=== PATIENT | male | born 1965 | race Caucasian/White ===

== ENCOUNTER 2020-11-17 07:56 | Emergency (ER) | payer SELFPAY ==
[~2020-11-17] VITALS: Ht 175.3 cm; Wt 122.5 kg
[~2020-11-17 07:56] MED LIST: COLCHICINE0.6 MG PO; Indomethacin50 MG PO
[2020-11-17] MEDS ORDERED: ATOR40TA PO (08:18)
[2020-11-17] MEDS ORDERED: TAMS.4ER PO (08:19)
[2020-11-17] MEDS ORDERED: AMLO10 PO (08:19)
[2020-11-17] MEDS ORDERED: LOSA50 PO (08:19)
[2020-11-17] MEDS ORDERED: ASCO500 PO (08:20)
[2020-11-17] MEDS ORDERED: ASPI81CH PO (08:20)
[2020-11-17] MEDS ORDERED: LEVSOD100 PO (08:20)
[2020-11-17] MEDS ORDERED: FISH OIL 1,2001 EAC7 PO (08:21)
[2020-11-17] MEDS ORDERED: METO100ER PO (08:21)
[2020-11-17] MEDS ORDERED: ZINC15 PO (08:21)
[2020-11-17] MEDS ORDERED: TOCO1000 PO (08:21)
[2020-11-17] MEDS ORDERED: MERIBIN5 M1 PO (08:22)
[2020-11-17] MEDS ORDERED: VITAMIN D325 MC3 PO (08:22)
[2020-11-17] MEDS ORDERED: IBUP800 PO (08:23)
[2020-11-17] MEDS ORDERED: CYCL10 PO (08:23)
[2020-11-17] MEDS ORDERED: OMEP20ER PO (08:23)
[2020-11-17] MEDS ORDERED: [UNRECOGNIZED DRUG - OTHER] (08:25)
[2020-11-17] MEDS ORDERED: TRI MIX 150 MG IC (08:26)
[2020-11-17 08:44] LABS: Source, Urine Clean Catch
[2020-11-17 08:49] LABS: Appearance, Urine Clear (Clear); Bilirubin, Urine Neg (Neg); Blood, Urine Neg (Neg); Color, Urine Yellow (P-Yellow); Glucose Qualitative, Urine 2+ (Neg); Ketones, Urine Neg (Neg); Leukocyte Esterase, Urine Neg (Neg); Nitrite, Urine Neg (Neg); Protein, Urine Neg (Neg); Specific Gravity, Urine 1.005 (1.003-1.022); Urobilinogen, Urine NORM (Normal)
[2020-11-17 09:20] LABS: BASOPHILS ABSOLUTE AUTO 0.05 K/mm3 (0.00-0.23); BASOPHILS PERCENT AUTO 0 % (0-2); EOSINOPHILS ABSOLUTE AUTO 0.36 K/mm3 (0.00-0.68); EOSINOPHILS PERCENT AUTO 3 % (0-6); Hematocrit 47.2 % (37.0-53.0); Hemoglobin 15.9 g/dL (13.5-17.5); IMMATURE GRAN ABSOLUTE AUTO 0.09 K/mm3 (0.00-0.10); IMMATURE GRAN PERCENT AUTO 1 % (0-1); LYMPHOCYTES ABSOLUTE AUTO 1.36 K/mm3 (0.84-5.20); LYMPHOCYTES PERCENT AUTO 10 % (21-46); MONOCYTES ABSOLUTE AUTO 1.37 K/mm3 (0.16-1.47); MONOCYTES PERCENT AUTO 10 % (4-13); Mean Corpuscular HGB 30.1 pg (26.0-34.0); Mean Corpuscular HGB Conc 33.7 g/dL (31.5-36.5); Mean Corpuscular Volume 89 fL (80-100); Mean Platelet Volume 9.9 fL (9.1-12.4); NEUTROPHILS ABSOLUTE AUTO 10.97 K/mm3 (1.96-9.15); NEUTROPHILS PERCENT AUTO 77 % (41-73); Platelet Count 192 K/mm3 (150-400); RDW Coefficient Variation 13.4 % (11.7-14.2); RDW Standard Deviation 44.1 fL (35.1-46.3); Red Blood Cell Count 5.29 M/mm3 (4.30-5.90)
[2020-11-17 09:55] LABS: Alanine Aminotransfer (ALT/SGP 55 U/L (12-78); Albumin, Blood 3.7 g/dL (3.4-5.0); Albumin/Globulin Ratio 1.2 (0.8-1.8); Alk Phos 89 U/L (50-136); Anion Gap 4 mmol/L (6-16); Aspartate Aminotrans (AST/SGOT 22 U/L (12-37); Bilirubin, Total 1.2 mg/dL (0.1-1.0); Blood Urea Nitrogen 13 mg/dL (8-24); CO2, Blood 29 mmol/L (21-32); Chloride, Blood 103 mmol/L (98-108); Globulin, Blood 3.1 g/dL (2.2-4.0); Glomerular Filtration Rate >60 (60-); Glucose, Blood 202 mg/dL (70-99); Potassium, Blood 3.8 mmol/L (3.5-5.5); Sodium, Blood 136 mmol/L (136-145); Total Protein, Blood 6.8 g/dL (6.4-8.2)
== END 2020-11-17 13:27 | disposition short-term general hospital (02) ==
LOC: ER 07:56
PROVIDERS: Physician Assistant
DX: N48.30 Priapism, unspecified (principal); I10 Essential (primary) hypertension; E78.5 Hyperlipidemia, unspecified; E03.9 Hypothyroidism, unspecified
CPT/HCPCS: 36415; 80053; 81003; 85025; 96374; 96375; 99284-25; J1170; J2270; J3010

== ENCOUNTER 2024-01-17 15:38 | Emergency (ER) | payer BC ==
[~2024-01-17] VITALS: Ht 175.3 cm; Wt 128.8 kg
[~2024-01-17 15:38] MED LIST changes: +AMLO10 PO; +ANASTROZOLE1 M7 PO; +ASCO500 PO; +ASPI81CH PO; +ATOR40TA PO; +CYCL10 PO; +FISH OIL 1,2001 EAC7 PO; +HYDR1TAB94 PO; +IBUP800 PO; +INSULANPEN SC; +LEVSOD100 PO; +LOSA50 PO; +MERIBIN5 M1 PO; +METF500 PO; +METO100ER PO; +OLME20 PO; +OMEP20ER PO; +TAMS.4ER PO; +TOCO1000 PO; +TRI MIX 150 MG IC; +VITAMIN D325 MC3 PO; +ZINC15 PO; +[UNRECOGNIZED DRUG - OTHER]
[2024-01-17 16:14] LABS: BASOPHILS ABSOLUTE AUTO 0.03 K/mm3 (0.00-0.23); BASOPHILS PERCENT AUTO 0 % (0-2); EOSINOPHILS ABSOLUTE AUTO 0.66 K/mm3 (0.00-0.68); EOSINOPHILS PERCENT AUTO 6 % (0-6); Hematocrit 33.8 % (37.0-53.0); Hemoglobin 11.6 g/dL (13.5-17.5); IMMATURE GRAN ABSOLUTE AUTO 0.07 K/mm3 (0.00-0.10); IMMATURE GRAN PERCENT AUTO 1 % (0-1); LYMPHOCYTES ABSOLUTE AUTO 1.83 K/mm3 (0.84-5.20); LYMPHOCYTES PERCENT AUTO 16 % (21-46); MONOCYTES ABSOLUTE AUTO 1.25 K/mm3 (0.16-1.47); MONOCYTES PERCENT AUTO 11 % (4-13); Mean Corpuscular HGB 30.4 pg (26.0-34.0); Mean Corpuscular HGB Conc 34.3 g/dL (31.5-36.5); Mean Corpuscular Volume 89 fL (80-100); Mean Platelet Volume 9.3 fL (9.1-12.4); NEUTROPHILS ABSOLUTE AUTO 7.83 K/mm3 (1.96-9.15); NEUTROPHILS PERCENT AUTO 67 % (41-73); Platelet Count 207 K/mm3 (150-400); RDW Coefficient Variation 12.3 % (11.7-14.2); RDW Standard Deviation 39.8 fL (35.1-46.3); Red Blood Cell Count 3.82 M/mm3 (4.30-5.90); White Blood Cell Count 11.67 K/mm3 (4.00-11.30)
[2024-01-17 16:38] LABS: Albumin, Blood 3.6 g/dL (3.4-5.0); Albumin/Globulin Ratio 1.2 (0.8-1.8); Bilirubin, Total 0.9 mg/dL (0.1-1.0); Bun/Creatinine Ratio 18.9 (12.0-20.0); Calcium, Blood 8.7 mg/dL (8.5-10.1); Creatinine, Blood 1.64 mg/dL (0.60-1.20); Globulin, Blood 3.1 g/dL (2.2-4.0); Potassium, Blood 4.3 mmol/L (3.5-5.5); Total Protein, Blood 6.7 g/dL (6.4-8.2)
[2024-01-17] MEDS ORDERED: NS 1,000 ML IV SCH (18:50)
[2024-01-17] MEDS ORDERED: Morphine Sulfate 4 MG/1 ML Injection IV ONE (19:00)
[2024-01-17 19:45] VITALS: BP 110/66
== END 2024-01-17 19:55 | disposition home or self-care (01) ==
LOC: ER 15:38
PROVIDERS: Physician Assistant
DX: R50.9 Fever, unspecified (principal); R79.89 Other specified abnormal findings of blood chemistry; M54.50 Low back pain, unspecified; I10 Essential (primary) hypertension; E78.5 Hyperlipidemia, unspecified; E03.9 Hypothyroidism, unspecified; Z79.84 Long term (current) use of oral hypoglycemic drugs; Z79.4 Long term (current) use of insulin; Z79.899 Other long term (current) drug therapy; Z79.82 Long term (current) use of aspirin
CPT/HCPCS: 51798; 71046; 80053; 83605; 85025; 96361; 96374; 99283-25; J2270; J7030

== ENCOUNTER 2024-02-26 06:39 | Day surgery (SDC) | payer BC ==
[~2024-02-26] VITALS: Ht 177.8 cm; Wt 125.0 kg
[~2024-02-26 06:39] MED LIST changes: +INDO50 PO
--- NOTE | 2024-02-26 07:09 | NUR ---
Ambulatory in Day SurgeryPre-Op teaching done. Pt verbalizes understanding. History, Chart, Medications and Allergies reviewed before start of procedure.Patient confirms NPO status and agrees with scheduled surgery. Patient States Post-Procedure ride home has been arranged.
[2024-02-26] MEDS ORDERED: Lactated Ringer's 1,000 ML IV SCH (07:10)
[2024-02-26 07:27] VITALS: BP 147/90
[2024-02-26] MEDS ORDERED: OZEMPIC1 MG/0.72 (07:33)
[2024-02-26] MEDS ORDERED: Midazolam HCl 1MG / ML 2ML Vial ONE (08:28)
[2024-02-26] MEDS ORDERED: propofoL 20 ML IV ONE (08:28)
[2024-02-26] MEDS ORDERED: Glycopyrrolate 0.2 MG/ML 5ML VIAL ONE (08:29)
[2024-02-26] MEDS ORDERED: Lidocaine HCl 4% 5 ML SDA ONE (08:31)
[2024-02-26] MEDS ORDERED: Ondansetron HCl 2 MG / ML 2ML Vial IV PRN (08:45)
--- NOTE | 2024-02-26 08:48 | NUR ---
02/26/24 0848 Elvis Schwartz History, Chart, Medications and Allergies reviewed before start of procedure.MONITOR INTACT WITH CONTINUOUS PULSE OXIMETRY, CONTINUOUS END TITAL CO2, AND INTERMITTENT BLOOD PRESSURE.3-LEAD EKG REVIEWED WITH PHYSICIAN PRIOR TO START OF PROCEDURE.O2 VIA POM INTACT THROUGHOUT SEDATION/PROCEDURE.See Anesthesia record.
[2024-02-26 09:30] VITALS: BP 120/83
--- NOTE | 2024-02-26 09:50 | NUR ---
Discharge instructions reviewed with patient. Patient verbalizes understanding. Copy given to patient to take home. Patient States Post-Procedure ride home has been arranged. Discharged via wheelchair to private car for ride home.
== END 2024-02-26 09:50 | disposition home or self-care (01) ==
LOC: ORSCMMR 06:39 → ORD 08:00 → ORSCMMR 09:50
PROVIDERS: Internal Medicine Gastroenterology
PROC: 0DBL8ZX Excision of Transverse Colon, Via Natural or Artificial Opening Endoscopic, Diagnostic (ICD-10-PCS; principal; 2024-02-26 08:00)
PROC: 0DB68ZX Excision of Stomach, Via Natural or Artificial Opening Endoscopic, Diagnostic (ICD-10-PCS; principal; 2024-02-26 08:00)
PROC: 0DB48ZX Excision of Esophagogastric Junction, Via Natural or Artificial Opening Endoscopic, Diagnostic (ICD-10-PCS; principal; 2024-02-26 08:00)
PROC: 0DB58ZX Excision of Esophagus, Via Natural or Artificial Opening Endoscopic, Diagnostic (ICD-10-PCS; principal; 2024-02-26 08:00)
PROC: 0DB98ZX Excision of Duodenum, Via Natural or Artificial Opening Endoscopic, Diagnostic (ICD-10-PCS; principal; 2024-02-26 08:00)
DX: K21.00 Gastro-esophageal reflux disease with esophagitis, without bleeding (principal); K29.50 Unspecified chronic gastritis without bleeding; Z80.0 Family history of malignant neoplasm of digestive organs; Z12.11 Encounter for screening for malignant neoplasm of colon; D12.3 Benign neoplasm of transverse colon; Z86.0100 Personal history of colon polyps, unspecified; E11.9 Type 2 diabetes mellitus without complications; I10 Essential (primary) hypertension; E78.00 Pure hypercholesterolemia, unspecified; E03.9 Hypothyroidism, unspecified; N40.0 Benign prostatic hyperplasia without lower urinary tract symptoms; E66.01 Morbid (severe) obesity due to excess calories; Z68.39 Body mass index [BMI] 39.0-39.9, adult; N62 Hypertrophy of breast; Z79.4 Long term (current) use of insulin; Z79.85 Long-term (current) use of injectable non-insulin antidiabetic drugs; Z79.899 Other long term (current) drug therapy; Z79.84 Long term (current) use of oral hypoglycemic drugs
CPT/HCPCS: 82947; 88305; 88342; J2001; J2003; J2250; J2704; J7120